=== PATIENT | male | born 1965 | race Caucasian/White ===

== ENCOUNTER → 2019-06-27 | Outpatient (CLI) | payer OTHER ==
--- NOTE | 2019-06-27 09:20 | MRI ---
Study: MRI of the Left Knee. Indication: LEFT KNEE PAIN Technique: Multiplanar, multi sequence MRI of the left knee was obtained without intravenous contrast. Comparison: November 21, 2015. Findings: Interval placement of an ACL graft. Moderate mucoid degeneration of the mid to distal aspect of the graft with low-grade interstitial tearing distally. No complete transection. Mild intraosseous cystic change of the tibial tunnel noted. PCL and lateral collateral ligament complex intact. Prior MCL repair noted with suture anchors proximally and distally. The MCL is thickened and bowed throughout. A ganglion tracks from the femoral suture tract through a small defect within the proximal MCL and medial retinaculum into the subcutaneous fat. The subcutaneous portion of the ganglion measures up to 30 mm AP by 10 mm transverse by 57 mm craniocaudal. No recurrent tear of the MCL identified. Degenerative signal posterior horn and body medial meniscus without tear. Body extruded by 2 mm. Grade 4 chondrosis and subchondral cystic change anteromedial margin of the medial tibial plateau with additional grade 2 and 3 chondral loss throughout the medial compartment. Mild volume loss and degenerative signal posterior horn and body lateral meniscus without fluid-filled tear. Grade 2 and mild grade 3 chondral loss of the lateral compartment. Tendinosis and mild interstitial fissuring patellar tendon origin. Quadriceps tendon intact. Patella located. Patchy grade 3 and mild grade 4 chondral loss medial patellar facet/apex as well as at the midline femoral trochlea. Moderate size knee effusion with scattered synovitis. No acute fracture. Impression: Moderate mucoid degeneration ACL graft with low-grade interstitial tearing distally as well as mild cystic change about the tibial tunnel. Prior MCL repair with associated prominent ganglion within the subcutaneous fat superficial to medial femoral condyle which communicates with the suture anchor within the femur as above. No recurrent full-thickness tear of the MCL. Degenerative changes medial meniscus and lateral meniscus without fluid-filled tear. Grade 2-3 chondrosis throughout the medial compartment but with a dominant area of grade 4 chondral loss and subchondral cystic change of the anteromedial margin of the medial tibial plateau. Grade 2 and mild grade 3 chondrosis throughout the lateral compartment. Patchy grade 3/4 chondrosis medial patellar facet and apex as well as at the midline femoral trochlea. Moderate size knee effusion. Additional findings as above. Electronically signed by: Clemente Alatorre MD 06/27/2019 9:18 AM [facility]
--- NOTE | 2019-06-27 09:24 | MRI ---
Study: MRI of the Right Knee. Indication: RIGHT KNEE PAIN Technique: Multiplanar, multi sequence MRI of the right knee was obtained without intravenous contrast. Comparison: None. Findings: Mild mucoid degeneration of the distal aspect of the ACL graft with low-grade interstitial tearing at this site. No recurrent full-thickness tear. PCL intact. MCL is lax and bowed indicating sequela of a prior MCL sprain. No acute tear. IT band thickened distally with increased internal PD signal which can be seen with IT band friction. Tiny 7 mm ganglion associated with the anteromedial margin of the distal IT band. Remaining lateral collateral ligament complex structures intact. Scattered degenerative signal change medial meniscus with vertically oriented increased PD signal at the peripheral red zone of the posterior horn. This could reflect a vertical radial tear versus postsurgical change. Scattered degenerative signal changes lateral meniscus with free edge and undersurface fraying of the body. Areas of grade 2 and mild grade 3 chondral thinning and surface irregularity of the medial and lateral knee compartments. Tendinosis quadriceps tendon insertion. Post surgical changes patellar tendon without tear. Patella normally located. Extensive grade 4 chondral loss, cortical remodeling and subchondral marrow change throughout the majority of the patella with grade 3/4 changes throughout the femoral trochlea. Moderate size knee effusion. Mild thickening medial patellar plica. No acute fracture. Impression: Mild mucoid degeneration ACL graft with mild interstitial tearing distally. No transection. Remote MCL sprain. Degenerative change medial meniscus and lateral meniscus with questionable vertical radial tear versus post surgical signal change in the peripheral red zone of the posterior horn medial meniscus. Grade 2-3 chondrosis throughout the medial compartment and lateral compartment with more pronounced extensive grade 3-4 chondral loss of the patellofemoral compartment. Moderate size knee effusion. Additional findings as above. Electronically signed by: Clemente Alatorre MD 06/27/2019 9:22 AM [facility] [facility]
== END ==
LOC: MRI 06:31
PROVIDERS: ATTEND Nurse Practitioner
DX: M25.469 Effusion, unspecified knee (principal); S83.411A Sprain of medial collateral ligament of right knee, initial encounter; M94.261 Chondromalacia, right knee; M22.8X1 Other disorders of patella, right knee; M23.8X2 Other internal derangements of left knee; M94.262 Chondromalacia, left knee; Z98.890 Other specified postprocedural states

== ENCOUNTER → 2019-07-17 | Outpatient (CLI) | payer OTHER ==
--- NOTE | 2019-07-17 09:18 | RAD ---
EXAM DESCRIPTION: Knee,Left Complete CLINICAL HISTORY: 54 years Male, PAIN IN LEFT KNEE COMPARISON: None. Findings: Four views/radiographs ACL reconstruction. Mild medial compartment narrowing. Small scattered osteophytes. No joint effusion. No acute fracture or dislocation. IMPRESSION: No evidence of acute process in the left knee. Electronically signed by: Lupillo Vasquez MD 07/17/2019 9:17 AM [facility]
--- NOTE | 2019-07-17 09:20 | RAD ---
EXAM DESCRIPTION: Pelvis CLINICAL HISTORY: 54 years Male, PAIN IN LEFT HIP COMPARISON: None. Findings: One view/radiograph Moderate left and mild right hip osteoarthritis. Chronic deformity about the right pubic symphysis. No acute fracture or dislocation identified. Soft tissues are unremarkable sacroiliac joint spaces are preserved. Normal bone mineralization. IMPRESSION: Moderate left hip osteoarthritis. Electronically signed by: Lupillo Vasquez MD 07/17/2019 9:18 AM [facility]
== END ==
LOC: RAD 08:11
PROVIDERS: ATTEND Orthopaedic Surgery
DX: M16.12 Unilateral primary osteoarthritis, left hip (principal); M25.562 Pain in left knee